=== PATIENT | female | born 1985 | race Caucasian/White ===

== ENCOUNTER 2021-07-10 18:54 | Emergency (ER) | payer OTHER ==
[2021-07-10] MEDS ORDERED: CYCLOBENZAPRINE10 MG PO (21:28)
[2021-07-10] MEDS ORDERED: IBUPROFEN600 MG PO (21:28)
== END 2021-07-10 21:45 | disposition home or self-care (01) ==
LOC: ER1 18:54
DX: S13.4XXA Sprain of ligaments of cervical spine, initial encounter (principal); S33.5XXA Sprain of ligaments of lumbar spine, initial encounter; S23.3XXA Sprain of ligaments of thoracic spine, initial encounter; S40.012A Contusion of left shoulder, initial encounter; S70.02XA Contusion of left hip, initial encounter; F17.210 Nicotine dependence, cigarettes, uncomplicated; V43.52XA Car driver injured in collision with other type car in traffic accident, initial encounter
CPT/HCPCS: 72070; 72100; 72125; 73000; 73060; 73502; 96372; 99284; J1885